=== PATIENT | male | born 1985 | race Caucasian/White ===

== ENCOUNTER 2017-09-20 20:27 | Emergency (ER) | payer OTHER ==
[~2017-09-20] VITALS: Ht 160 cm; Wt 68.2 kg
[2017-09-20 20:34] VITALS: TEMP 97.9
[2017-09-20] MEDS ORDERED: GENTAMICIN EYE D5 ML OD (21:13)
[2017-09-20 21:37] VITALS: BP 102/72; PULSE 76
== END 2017-09-20 21:33 | disposition home or self-care (01) ==
LOC: COL.ER 20:27
DX: H10.89 Other conjunctivitis (principal)

== ENCOUNTER 2017-10-04 06:10 | Emergency (ER) | payer OTHER ==
[~2017-10-04] VITALS: Ht 160 cm; Wt 68.2 kg
[~2017-10-04 06:10] MED LIST: GENTAMICIN EYE D5 ML OD
[2017-10-04 06:13] VITALS: BP 147/75; TEMP 98.4
[2017-10-04] MEDS ORDERED: OCUFLOX OPHTH DR5 ML OU (06:44)
[2017-10-04 07:12] VITALS: PULSE 78
== END 2017-10-04 07:21 | disposition home or self-care (01) ==
LOC: COL.ER 06:10
DX: H10.13 Acute atopic conjunctivitis, bilateral (principal)

== ENCOUNTER 2017-11-04 22:40 | Emergency (ER) | payer OTHER ==
[~2017-11-04] VITALS: Ht 160 cm; Wt 68.2 kg
[~2017-11-04 22:40] MED LIST changes: +OCUFLOX OPHTH DR5 ML OU
[2017-11-04 22:44] VITALS: BP 149/66; TEMP 98.1
[2017-11-04 23:08] LABS: BASO # 0.1 (0.0-0.2); BASO % 0.6 % (0.0-2.0); EOS # 0.2 (0.0-0.7); EOS % 2.5 % (0-4.0); GRAN # 6.6 (1.4-6.5); HEMOGLOBIN 16.6 g/dl (13.5-18.0); LYMPH # 2.2 (1.2-3.4); LYMPH % 22.9 % (20.0-51.0); MEAN CELL VOLUME 83 fl (80.0-100.0); MEAN CORPUSCULAR HEMOGLOBIN 29 pg (27.0-31.0); MEAN CORPUSCULAR HGB CONC 35 g/dl (33.0-37.0); MEAN PLATELET VOLUME 10.4 fl (7.4-10.4); MONO # 0.7 (0.1-0.6); MONO % 6.6 % (1.7-9.3); PLATELET COUNT 219 K/mm3 (130-400); RED BLOOD COUNT 5.69 M/mm3 (4.20-5.60); REDCELL DISTRIBUTION WIDTH-CV 12.4 % (11.5-14.5)
[2017-11-04 23:19] LABS: BILIRUBIN,TOTAL 1.5 mg/dL (0.0-1.0); CALCIUM 9.5 mg/dL (8.4-10.2); CREATININE, serum 1.04 mg/dL (0.66-1.25); POTASSIUM 3.7 mmol/L (3.4-5.0); TOTAL PROTEIN 8.3 gm/dL (6.4-8.2)
[2017-11-04] MEDS ORDERED: ZOFRAN ODT4 MG PO (23:45)
[2017-11-05 00:12] VITALS: PULSE 73
== END 2017-11-05 00:12 | disposition home or self-care (01) ==
LOC: COL.ER 22:40
PROVIDERS: Emergency Medicine
DX: R11.2 Nausea with vomiting, unspecified (principal); R19.7 Diarrhea, unspecified; K21.9 Gastro-esophageal reflux disease without esophagitis
CPT/HCPCS: C9113; J2405; J7030